=== PATIENT | female | born 1970 ===

== ENCOUNTER 2017-10-18 11:35 | Emergency (ER) | payer OTHER ==
[2017-10-18 11:50] VITALS: BMI 43.9
--- NOTE | 2017-10-18 12:55 | ED PDOC ---
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 Patient states she feels confused, depressed, and sad for the past 6 months. She said her older son is using drugs and she does not know how to handle her 2 younger children. Reports she has not been treated for those symptoms and saw a psychiatrist when she was young. Patient denies suicidal ideation or homicidal ideation. PMD: Non [facility] Provider Past Medical History Reviewed: Historical Data, Nursing Documentation, Vital Signs Vital Signs: Last Vital Signs Temp 98.5 F 10/18/17 11:51 Pulse 90 10/18/17 11:51 Resp 20 10/18/17 11:51 BP 132/72 10/18/17 11:51 Pulse Ox 97 10/18/17 11:51 - Medical History PMH: No Chronic Diseases - Family History Family History: States: Unknown Family Hx - Allergies Allergies/Adverse Reactions: Allergies Allergy/AdvReac Type Severity Reaction Status Date / Time No Known Allergies Allergy Verified 10/18/17 11:52 Review of Systems ROS Statement: Except As Marked, All Systems Reviewed And Found Negative Psych: Negative for: Suicidal ideation (homicidal ideation ) Physical Exam - Reviewed Nursing Documentation Reviewed: Yes Vital Signs Reviewed: Yes - Physical Exam Appears: Positive for: Non-toxic, No Acute Distress Head Exam: Positive for: ATRAUMATIC, NORMAL INSPECTION, NORMOCEPHALIC Skin: Positive for: Normal Color, Warm, Dry Neck: Positive for: Normal, Painless ROM, Supple. Negative for: Decreased ROM Cardiovascular/Chest: Positive for: Regular Rate, Rhythm Respiratory: Positive for: Normal Breath Sounds. Negative for: Decreased Breath Sounds, Accessory Muscle Use, Rales, Respiratory Distress Pulses-Carotid (L): 2+ Pulses-Carotid (R): 2+ Lymphatic: Positive for: Normal Exam (no cervical lymphadenopathy) Neurologic/Psych: Positive for: Alert, Oriented (x3) - ECG O2 Sat by Pulse Oximetry: 97 (RA) Pulse Ox Interpretation: Normal Medical Decision Making Medical Decision Making: Time: 1257 Initial impression: psychiatric evaluation Initial plan: --Crisis Evaluation Scribe Attestation: Documented by Alex Sauceda, acting as a scribe for Lior Espinoza PA-C. Provider Scribe Attestation: All medical record entries made by the Scribe were at my direction and personally dictated by me. I have reviewed the chart and agree that the record accurately reflects my personal performance of the history, physical exam, medical decision making, and the department course for this patient. I have also personally directed, reviewed, and agree with the discharge instructions and disposition. Disposition - Clinical Impression Clinical Impression: Depression - Patient ED Disposition Is Patient to be Admitted: No Discussed With : Aracely Rivas Doctor Will See Patient In The: Office Counseled Patient/Family Regarding: Diagnosis, Need For Followup - Disposition Disposition: Routine/Home Disposition Time: 14:44 Condition: STABLE Additional Instructions: referrals provided by crisis Instructions: Depression, Depression, Adult (DC), Screening for Depression Forms: [employer] (Chadian), [employer] ([place]) Print Language: [id number]
[2017-10-18 16:48] VITALS: BP 138/76; PULSE 78; RESP 18; TEMP 98; O2SAT 100
== END 2017-10-18 15:45 | disposition home or self-care (01) ==
LOC: H.ER 11:35
DX: F32.9 Major depressive disorder, single episode, unspecified (principal)